=== PATIENT | female | born 1975 | race African-American/Black ===

== ENCOUNTER 2019-08-26 19:35 | Inpatient (IN) | payer MEDICAID ==
[~2019-08-26] VITALS: Ht 162.6 cm; Wt 107.0 kg
[2019-08-26] VITALS (7 sets, daily range): BP systolic 108–118; BP diastolic 52–63; BMI 41.1
[2019-08-26 20:08] LABS: ANION GAP 23.9 mmol/L (8-16); CALCIUM 8.5 mg/dL (8.5-10.1); CARBON DIOXIDE 16.1 mmol/L (21.0-32.0)
[2019-08-26 20:14] LABS: ALBUMIN 2.3 g/dL (3.4-5.0); BILIRUBIN - TOTAL 1.49 mg/dL (0.2-1.3); PROTEIN - SERUM 7.1 g/dL (6.4-8.2)
[2019-08-26 20:20] LABS: HEMATOCRIT 8.2 % (36.0-48.0); HEMOGLOBIN 2.2 g/dL (12-16); MCHC 26.8 g/dL (31.0-37.0); MCV 67.2 fL (80.0-100.0); MEAN PLATELET VOLUME 9.7 fL (7.4-10.4); PLATELET COUNT 410 10x3/uL (130-400); RBC 1.22 10x6/uL (4.00-5.40); RDW 21.2 % (11.5-14.5)
[2019-08-26 20:29] LABS: APTT 32.7 SECONDS (22.8-39.4); INR 1.48 (0.85-1.17); PROTIME 17.4 SECONDS (11.6-15.0)
[2019-08-26 20:30] LABS: APPEARANCE HAZY (CLEAR); BILIRUBIN NEGATIVE (NEGATIVE); COLOR YELLOW (YELLOW); GLUCOSE NEGATIVE (NEGATIVE); KETONE NEGATIVE (NEGATIVE); NITRITE NEGATIVE (NEGATIVE); PROTEIN NEGATIVE (NEGATIVE); UROBILINOGEN NORMAL (NORMAL)
[2019-08-26 20:32] LABS: HCG URINE NEGATIVE (NEGATIVE)
[2019-08-26 20:34] LABS: BACTERIA MODERATE /hpf (NEGATIVE); EPITHELIAL CELLS 0-5 /hpf (0-5); RED CELLS - URINE NONE SEEN /hpf (0-5)
--- NOTE | 2019-08-26 20:35 | NUR ---
OCCULT STOOL TEST POSITIVE. ADVISED YOJANA KEITH.
[2019-08-26 20:41] LABS: ANISOCYTOSIS 1+; LYMPHOCYTES 13 % (15-50); NEUTROPHILS 87 % (40-80); PLATELET ESTIMATE NORMAL
[2019-08-26 20:42] LABS: MICROCYTOSIS 2+; POIKILOCYTOSIS 1+
[2019-08-26 20:49] LABS: MAGNESIUM - SERUM 2.6 mg/dL (1.8-2.4); THYROID STIMULATING HORMONE 1.61 uIU/mL (0.36-3.74)
[2019-08-26 20:50] LABS: T4 THYROXIN - FREE 1.1 ng/dL (0.76-1.46); T4 THYROXINE 6.2 ug/dL (4.7-13.3)
[2019-08-26 20:58] LABS: % SATURATION 3 % (15-55); IRON 11 ug/dl (35-150); TOTAL IRON BIND CAPACITY 353 ug/dl (260-445); UNSAT IRON BIND CAPACITY 342 ug/dl (150-375)
[2019-08-26 21:04] LABS: TROPONIN-I 0.016 ng/mL (0.000-0.060)
--- NOTE | 2019-08-26 21:40 | NUR ---
PT TRANSPORTED TO CT PRIOR TO STARTING BLOOD PER EDP SAGAR
--- NOTE | 2019-08-26 23:15 | NUR ---
PATIENT ARRIVED ON UNIT VIA STRETCHER ACCOMPNAIED BY ER STAFF. TEAM TRANSFER TO ICU BED - PATIENT CONNECTED TO ICU MONITORS, ALRAMS ON AND WORKING. SUICIDE SCREENING,MED REC, ADMISSIONS HISTORY AND ADMISSION ASSESSMENT COMPLETED. PATIENT AWAKE ALERT AND ORIENTED, SHORTNESS OF BREATH NOTED, WEAKNESS ALL EXTREMITIES, TRACE EDEMA OF FEET AND ANKLES. SKIN IS FREE OF WOUNDS OR BREAKDOWN. PATIENT HAS 3LNC. PAIN 8/10 ON NUMERIC PAIN SCALE LOCATED LOWER LEFT KIDNEY, PAIN IS RELIEVED WITH PRESSURE. PATIENT DESCBRIBES THE PAIN AN ACHE AND IT IS INTERMITTENT. PATIENT ALSO EXPERIENCING SHARP SHOOTING PAINS STARTING FROM THE TOP OF LEFT SHOULDER AND SHOOTING DOWN HER LEG, PAIN IS INTERMITTENT. 8/10 ON NUMERIC PAIN SCALE.
[2019-08-27] VITALS (13 sets, daily range): BP systolic 94–119; BP diastolic 46–73
--- NOTE | 2019-08-27 03:20 | NUR ---
REASSESSMENT COMPLETED SEE FLOWSHEET
--- NOTE | 2019-08-27 05:06 | NUR ---
LINEN CHANGE COMPLETED
[2019-08-27 05:34] LABS: WBC 22.4 10x3/uL (4.8-10.8)
[2019-08-27 05:35] LABS: HEMOGLOBIN 2.7 g/dL (12-16); RBC 1.36 10x6/uL (4.00-5.40)
[2019-08-27 05:36] LABS: BASOPHILS 0 % (0-2); EOSINOPHILS 0 % (0-7); HEMATOCRIT 9.7 % (36.0-48.0); IMMATURE GRANULOCYTES 0.4 % (0-5); LYMPHOCYTES 3.4 % (15-50); MCH 19.9 pg (26.0-34.0); MCHC 27.8 g/dL (31.0-37.0); MCV 71.3 fL (80.0-100.0); MEAN PLATELET VOLUME 9.6 fL (7.4-10.4); MONOCYTES 7.3 % (2-11); NEUTROPHILS 88.9 % (40-80); PLATELET COUNT 335 10x3/uL (130-400); RDW 25.3 % (11.5-14.5)
[2019-08-27 05:50] LABS: ALBUMIN 2.1 g/dL (3.4-5.0); ANION GAP 19.7 mmol/L (8-16); BILIRUBIN - TOTAL 1.61 mg/dL (0.2-1.3); CALCIUM 8.5 mg/dL (8.5-10.1); CARBON DIOXIDE 18.8 mmol/L (21.0-32.0); CREATININE - SERUM 0.9 mg/dL (0.6-1.3); POTASSIUM - SERUM 3.5 mmol/L (3.5-5.1)
--- NOTE | 2019-08-27 11:01 | NUR ---
PATIENT ALERT AND ORIENTED. SHORTNESS OF BREATH. 3L NC. FINGER SATURATION STATES 50%. ABG DONE AND 99% SPO2. WILL CONTINUE TO MONITOR THAT. NO ACUTE DISTRESS. SEE ASSESSMENT. SEE VITALS Q1 HR. SEE ADL'S. BICARB DRIP @125. DENIES NEEDS AND PAIN AT THIS TIME.
--- NOTE | 2019-08-27 11:03 | NUR ---
FULL LIQUID DIET. PATIENT TOLERATED JUICE AND APPLESAUCE PROVIDED BY MELODY CUEVAS. NO DISTRESS. WILL CONTINUE TO MONITOR. ZOFRAN GIVEN PER MAR
--- NOTE | 2019-08-27 12:23 | NUR ---
report given to varun
--- NOTE | 2019-08-27 13:06 | NUR ---
RECEIVED TO ROOM 2218 VIA BED FROM ICU. A/O X3. SKIN IS INTACT WITHOUT REDNESS. DENIES NEEDS. PURE WICK PLACED PER STAFF.
--- NOTE | 2019-08-27 18:37 | NUR ---
ATE ABOUT HALF OF SUPPER. DENIES NEEDS. NO CHANGES NOTED. FAMILY AT BEDSIDE.
--- NOTE | 2019-08-27 20:20 | NUR ---
AWAKE,ALERT.NO COMPLAINTS VOICED. RESP EVEN AND UNALBORED. NO DISTRESS NOTED.MIDLINE INTACT TO MARTA WITHOUT REDNESS OR EDEMA NOTED. SL TO RAC WITHOUT REDNESS OR EDEMA. CL IN REACH. FAMILY AT BEDSIDE.
[2019-08-28 00:17] VITALS: BP 95/49
--- NOTE | 2019-08-28 03:26 | NUR ---
I have reviewed this patient and I concur with the Shift Assessment completed by the Licensed Practical Nurse today this shift.
[2019-08-28 04:47] VITALS: BP 96/52
[2019-08-28 06:20] LABS: BASOPHILS 0.1 % (0-2); EOSINOPHILS 0.1 % (0-7); IMMATURE GRANULOCYTES 0.6 % (0-5); LYMPHOCYTES 6.3 % (15-50); MCHC 27.7 g/dL (31.0-37.0); MCV 71.2 fL (80.0-100.0); MEAN PLATELET VOLUME 9.5 fL (7.4-10.4); MONOCYTES 7.9 % (2-11); PLATELET COUNT 296 10x3/uL (130-400); RDW 24.1 % (11.5-14.5)
[2019-08-28 06:28] LABS: WBC 14.8 10x3/uL (4.8-10.8)
[2019-08-28 06:29] LABS: MCH 19.7 pg (26.0-34.0)
[2019-08-28 06:30] LABS: HEMATOCRIT 9.4 % (36.0-48.0); HEMOGLOBIN 2.6 g/dL (12-16); RBC 1.32 10x6/uL (4.00-5.40)
[2019-08-28 06:35] LABS: ALBUMIN 1.9 g/dL (3.4-5.0); ALKALINE PHOSPHATASE 111 U/L (46-116); ALT (SGPT) 28 U/L (10-68); BILIRUBIN - TOTAL 1.57 mg/dL (0.2-1.3); CALCIUM 8.1 mg/dL (8.5-10.1); CHLORIDE - SERUM 98 mmol/L (98-107); CREATININE - SERUM 0.7 mg/dL (0.6-1.3); GLUCOSE 104 mg/dL (74-106); PROTEIN - SERUM 6.5 g/dL (6.4-8.2); SODIUM 134 mmol/L (136-145); eGFR NON AFRICAN AMERICAN > 90 mL/min (90-120)
[2019-08-28 06:44] LABS: CALC OSMOLALITY 266 mosm/kg (275-300); CARBON DIOXIDE 31.2 mmol/L (21.0-32.0); UREA NITROGEN 9 mg/dL (7-18)
[2019-08-28 06:46] LABS: POTASSIUM - SERUM 2.8 mmol/L (3.5-5.1)
[2019-08-28 07:56] VITALS: BP 100/56
--- NOTE | 2019-08-28 09:40 | NUR ---
ORDER TO TRANSFUSE BLOOD AT THIS TIME, 2 UNITS. ALSO ORDER TO TRANSFER PATIENT TO ICU. NO COMPLAINTS OR SIGNS OF DISTRESS. AT THIS TIME. H&H CRITICAL. IV AND MIDLINE INTACT. CALL LIGHT WITHIN REACH.
--- NOTE | 2019-08-28 09:58 | MORECARE ---
CASE MANAGEMENT DISCHARGE SUMMARY PATIENT: ANNABELLE URBANO UNIT: [id number] ADM DATE: 08/26/19 AGE: 44 : 77 SEX: F ROOM/BED: D.2218 AUTHOR: CORTEZ MAYNARD PHYSICIAN: REFERRING PHYSICIAN: JHONY JANE MD DATE OF SERVICE: 08/28/19 Discharge Plan Patient Name: ANNABELLE URBANO Facility: [facility]:[place] : 1975 Planned Disposition: Home or Self Care Anticipated Discharge Date: Discharge Date: Expected LOS: Initial Reviewer: [email or web address] Initial Review Date: 08/26/2019 Generated: 08/28/19 10:58 am Comments DCP- Discharge Planning Updated by [email or web address]: Karrie Paulino on 08/28/19 8:[address] Patient Name: ANNABELLE URBANO Admission Status: ER Accout number: [id number] Admission Date: 08-26-2019 : 1975 Admission Diagnosis: Attending: JHONY JANE Current LOS: 2 Anticipated DC Date: Planned Disposition: Home or Self Care Primary Insurance: MEDICAID [place] PENDING Discharge Planning Comments: CM met with patient to complete initial dc planning assessment. CM educated patient on the CM role and verbal consent given by patient to complete assessment. Patient lives at home with a friend where she is independent with her care. At discharge patient plans to return home and feels this is a safe discharge. She stated that her son or her sister will be her pharmacy delivery driver home. CM discussed availability of home health, rehab services, and medical equipment. Patient denied known discharge needs at this time. CM will continue to follow and will assist as needed with dc plans/needs. Cigarette Making Machine Catcher: Karrie Paulino DCPIA - Discharge Planning Initial Assessment Updated by [email or web address]: Karrie Paulino on 08/28/19 9:53 am * Is the patient Alert and Oriented? Yes * How many steps to enter\exit or inside your home? * PCP none * Pharmacy [facility] [address] * Preadmission Environment Home Alone * ADLs Independent * Equipment None * List name and contact numbers for known caregivers / representatives who currently or will assist patient after discharge: papi kirk [phone] * Verbal permission to speak to the caregivers and representatives has been obtained from the patient. N/A * Community resources currently utilized None * Additional services required to return to the preadmission environment? No * Can the patient safely return to the preadmission environment? Yes * Has this patient been hospitalized within the prior 30 days at any hospital? No Patient Name: ANNABELLE URBANO Page [phone] at 0958 All edits/amendments must be made on the electronic document DICTATION DATE: 08/28/19957 RAIL CAR OPERATOR: GASPER 08/28/19957 RPT#: [id number] DC DATE: STATUS: ADM IN [facility] [address] [place] [address] END OF REPORT
[2019-08-28 10:12] LABS: INR 1.36 (0.85-1.17); PROTIME 16.2 SECONDS (11.6-15.0)
--- NOTE | 2019-08-28 10:15 | NUR ---
BLOOD READY AT THIS TIME FOR TRANSFUSION.
--- NOTE | 2019-08-28 10:25 | NUR ---
CALLED REPORT TO KRYS IN ICU FOR TRANSFER. STATED THAT SHE WAS TOLD NOW THAT THE PATIENT IS NOT COMING TO ICU ANYMORE. STATED TO CALL HER BACK AND LET HER KNOW IF SHE WAS. PATIENT IN BED WITH NO COMPLAINTS OR SIGNS OF DISTRESS. CALL LIGHT WITHIN REACH.
--- NOTE | 2019-08-28 11:15 | NUR ---
PATIENT NOT BEING TRANSFERED TO UNIT AT THIS TIME PER DR. FLORES. PATIENT STABLE AND HAS NOT DISTRESS. VS WNL. O2 SATS WNL, NO COMPLAINTS. CALL LIGHT WITHIN REACH.
--- NOTE | 2019-08-28 12:15 | NUR ---
SPOKE WITH DR. FLORES TO VERIFY OK FOR 2 UNITS OF BLOOD. EXPLAINED IN REPORT I WAS TOLD I COULD ONLY GIVE 1 UNIT A DAY. STATED OK TO GIVE BOTH UNITS AT THIS TIME.
--- NOTE | 2019-08-28 13:16 | MORECARE ---
CASE MANAGEMENT DISCHARGE SUMMARY PATIENT: ANNABELLE URBANO UNIT: [id number] ADM DATE: 08/26/19 AGE: 44 : 77 SEX: F ROOM/BED: D.1398 AUTHOR: CORTEZ MAYNARD PHYSICIAN: REFERRING PHYSICIAN: JHONY JANE MD DATE OF SERVICE: 08/28/19 Discharge Plan Patient Name: ANNABELLE URBANO Facility: [facility]:[place] : 1975 Planned Disposition: Home or Self Care Anticipated Discharge Date: Discharge Date: Expected LOS: Initial Reviewer: [email or web address] Initial Review Date: 08/26/2019 Generated: 08/28/19 2:15 pm Comments DCP- Discharge Planning Updated by [email or web address]: Karrie Paulino on 08/28/19 12:[address] TRANSFER STARTED, SPOKE WITH KARIS WITH EASY ADMIT DCP- Discharge Planning Updated by [email or web address]: Karrie Paulino on 08/28/19 8:[address] Patient Name: ANNABELLE URBANO Admission Status: ER Accout number: [id number] Admission Date: 08-26-2019 : 1975 Admission Diagnosis: Attending: JHONY JANE Current LOS: 2 Anticipated DC Date: Planned Disposition: Home or Self Care Primary Insurance: MEDICAID [place] PENDING Discharge Planning Comments: CM met with patient to complete initial dc planning assessment. CM educated patient on the CM role and verbal consent given by patient to complete assessment. Patient lives at home with a friend where she is independent with her care. At discharge patient plans to return home and feels this is a safe discharge. She stated that her son or her sister will be her motor driver home. CM discussed availability of home health, rehab services, and medical equipment. Patient denied known discharge needs at this time. CM will continue to follow and will assist as needed with dc plans/needs. Truck Cleaner: Karrie Paulino DCPIA - Discharge Planning Initial Assessment Updated by [email or web address]: Karrie Paulino on 08/28/19 9:53 am * Is the patient Alert and Oriented? Yes * How many steps to enter\exit or inside your home? * PCP none * Pharmacy [facility] on [address] * Preadmission Environment Home Alone * ADLs Independent * Equipment None * List name and contact numbers for known caregivers / representatives who currently or will assist patient after discharge: papi kirk [phone] * Verbal permission to speak to the caregivers and representatives has been obtained from the patient. N/A * Community resources currently utilized None * Additional services required to return to the preadmission environment? No * Can the patient safely return to the preadmission environment? Yes * Has this patient been hospitalized within the prior 30 days at any hospital? No Last DP export: 08/28/19 8:58 Patient Name: ANNABELLE URBANO Page [phone] at 1316 All edits/amendments must be made on the electronic document DICTATION DATE: 08/28/191314 BUSINESS ANALYST ECOMMERCE: GASPER 08/28/191314 RPT#: [id number] DC DATE: STATUS: ADM IN [facility] [address] [place] [address] END OF REPORT
--- NOTE | 2019-08-28 13:40 | NUR ---
SPOKE WITH PEDRO CROCKETT ABOUT DR. FLORES CLARIFYING OK TO GIVE 2 UNITS. BON STATED TO INFUSE AT 100/HOUR.
--- NOTE | 2019-08-28 13:45 | MORECARE ---
CASE MANAGEMENT DISCHARGE SUMMARY PATIENT: ANNABELLE URBANO UNIT: [id number] ADM DATE: 08/26/19 AGE: 44 : 77 SEX: F ROOM/BED: D.2218 AUTHOR: CORTEZ MAYNARD PHYSICIAN: REFERRING PHYSICIAN: JHONY JANE MD DATE OF SERVICE: 08/28/19 Discharge Plan Patient Name: ANNABELLE URBANO Facility: [facility]:[place] : 1975 Planned Disposition: Home or Self Care Anticipated Discharge Date: Discharge Date: Expected LOS: Initial Reviewer: [email or web address] Initial Review Date: 08/26/2019 Generated: 08/28/19 2:45 pm Comments DCP- Discharge Planning Updated by [email or web address]: Karrie Paulino on 08/28/19 12:[address] SPOKE WITH PATIENT AND PATIENT'S SON ABOUT TRANSFER MAYCO URBANO (SON) [phone] DCP- Discharge Planning Updated by [email or web address]: Karrie Paulino on 08/28/19 12:[address] TRANSFER STARTED, SPOKE WITH KARIS WITH EASY ADMIT DCP- Discharge Planning Updated by [email or web address]: Karrie Paulino on 08/28/19 8:[address] Patient Name: ANNABELLE URBANO Admission Status: ER Accout number: [id number] Admission Date: 08-26-2019 : 1975 Admission Diagnosis: Attending: JHONY JANE Current LOS: 2 Anticipated DC Date: Planned Disposition: Home or Self Care Primary Insurance: MEDICAID [place] PENDING Discharge Planning Comments: CM met with patient to complete initial dc planning assessment. CM educated patient on the CM role and verbal consent given by patient to complete assessment. Patient lives at home with a friend where she is independent with her care. At discharge patient plans to return home and feels this is a safe discharge. She stated that her son or her sister will be her transport truck driver home. CM discussed availability of home health, rehab services, and medical equipment. Patient denied known discharge needs at this time. CM will continue to follow and will assist as needed with dc plans/needs. Recycler Forklift Driver Truck Driver: Karrie Paulino DCPIA - Discharge Planning Initial Assessment Updated by [email or web address]: Karrie Paulino on 08/28/19 9:53 am * Is the patient Alert and Oriented? Yes * How many steps to enter\exit or inside your home? * PCP none * Pharmacy [facility] [address] * Preadmission Environment Home Alone * ADLs Independent * Equipment None * List name and contact numbers for known caregivers / representatives who currently or will assist patient after discharge: papi kirk [phone] * Verbal permission to speak to the caregivers and representatives has been obtained from the patient. N/A * Community resources currently utilized None * Additional services required to return to the preadmission environment? No * Can the patient safely return to the preadmission environment? Yes * Has this patient been hospitalized within the prior 30 days at any hospital? No Last DP export: 08/28/19 12:16 Patient Name: ANNABELLE URBANO Page [phone] at 1345 All edits/amendments must be made on the electronic document DICTATION DATE: 08/28/19 134 ALUMINA PLANT SUPERVISOR: GASPER 08/28/19 1345 RPT#: [id number] DC DATE: STATUS: ADM IN [facility] [address] [place] [address] END OF REPORT
--- NOTE | 2019-08-28 14:00 | NUR ---
STARTED FIRST UNIT OF BLOOD, INFUSING AT 100ML/HOUR. PATIENT VS STABLE AND IV INTACT. NO COMPLAINTS OR SIGNS OF DISTRESS. FAMILY AT BEDSIDE. CALL LIGHT WITHIN REACH.
--- NOTE | 2019-08-28 14:15 | NUR ---
PATIENT BLOOD INFUSING WITH NO PROBLEMS. VS STABLE. IV INTACT. CALL LIGHT WITHIN REACH.
[2019-08-28 14:23] VITALS: BMI 40.5
--- NOTE | 2019-08-28 15:30 | NUR ---
WAS TOLD BY HERMANN MENA AND DR. FLORES OK TO INFUSE BLOOD AT FASTER RIGHT. TO GO AHEAD AND GIVE THE NEXT UNIT AT NORMAL RATE AND TO GIVE LASIX 20 MG AFTER. VERBALIZED UNDERSTANDING. INFUSION TURNED UP BY RN. CALL LIGHT WITHIN REACH.
--- NOTE | 2019-08-28 15:49 | MORECARE ---
CASE MANAGEMENT DISCHARGE SUMMARY PATIENT: ANNABELLE URBANO UNIT: [id number] ADM DATE: 08/26/19 AGE: 44 : 77 SEX: F ROOM/BED: D.2218 AUTHOR: CORTEZ MAYNARD PHYSICIAN: REFERRING PHYSICIAN: JHONY JANE MD DATE OF SERVICE: 08/28/19 Discharge Plan Patient Name: ANNABELLE URBANO Facility: [facility]:[place] : 1975 Planned Disposition: Home or Self Care Anticipated Discharge Date: Discharge Date: Expected LOS: Initial Reviewer: [email or web address] Initial Review Date: 08/26/2019 Generated: 08/28/19 4:49 pm Comments DCP- Discharge Planning Updated by [email or web address]: Karrie Paulino on 08/28/19 12:[address] SPOKE WITH PATIENT AND PATIENT'S SON ABOUT TRANSFER MAYCO URBANO (SON) [phone] DCP- Discharge Planning Updated by [email or web address]: Karrie Paulino on 08/28/19 12:[address] TRANSFER STARTED, SPOKE WITH KARIS WITH EASY ADMIT DCP- Discharge Planning Updated by [email or web address]: Karrie Paulino on 08/28/19 8:[address] Patient Name: ANNABELLE URBANO Admission Status: ER Accout number: [id number] Admission Date: 08-26-2019 : 1975 Admission Diagnosis: Attending: JHONY JANE Current LOS: 2 Anticipated DC Date: Planned Disposition: Home or Self Care Primary Insurance: MEDICAID [place] PENDING Discharge Planning Comments: CM met with patient to complete initial dc planning assessment. CM educated patient on the CM role and verbal consent given by patient to complete assessment. Patient lives at home with a friend where she is independent with her care. At discharge patient plans to return home and feels this is a safe discharge. She stated that her son or her sister will be her driver's education instructor home. CM discussed availability of home health, rehab services, and medical equipment. Patient denied known discharge needs at this time. CM will continue to follow and will assist as needed with dc plans/needs. Tearoom Hostess: Karrie Paulino DCPIA - Discharge Planning Initial Assessment Updated by [email or web address]: Karrie Paulino on 08/28/19 9:53 am * Is the patient Alert and Oriented? Yes * How many steps to enter\exit or inside your home? * PCP none * Pharmacy [facility] [address] * Preadmission Environment Home Alone * ADLs Independent * Equipment None * List name and contact numbers for known caregivers / representatives who currently or will assist patient after discharge: papi kirk [phone] * Verbal permission to speak to the caregivers and representatives has been obtained from the patient. N/A * Community resources currently utilized None * Additional services required to return to the preadmission environment? No * Can the patient safely return to the preadmission environment? Yes * Has this patient been hospitalized within the prior 30 days at any hospital? No Last DP export: 08/28/19 12:45 Patient Name: ANNABELLE URBANO Page [phone] at 1549 All edits/amendments must be made on the electronic document DICTATION DATE: 08/28/191547 ANCHORMAN: GASPER 08/28/191547 RPT#: [id number] DC DATE: STATUS: ADM IN [facility] [address] [place] [address] END OF REPORT
--- NOTE | 2019-08-28 15:58 | MORECARE ---
CASE MANAGEMENT DISCHARGE SUMMARY PATIENT: ANNABELLE URBANO UNIT: [id number] ADM DATE: 08/26/19 AGE: 44 : 77 SEX: F ROOM/BED: D.2218 AUTHOR: CORTEZ MAYNARD PHYSICIAN: REFERRING PHYSICIAN: JHONY JANE MD DATE OF SERVICE: 08/28/19 Discharge Plan Patient Name: ANNABELLE URBANO Facility: [facility]:[place] : 1975 Planned Disposition: Home or Self Care Anticipated Discharge Date: Discharge Date: Expected LOS: Initial Reviewer: [email or web address] Initial Review Date: 08/26/2019 Generated: 08/28/19 4:58 pm Comments DCP- Discharge Planning Updated by [email or web address]: Karrie Paulino on 08/28/19 2:[address] SPOKE WITH PACO AT [facility]Y ADMIT, THEY HAVE AN ACCEPTING MD DR MARIUSZ DIOP AT [facility] IN [place] DCP- Discharge Planning Updated by [email or web address]: Karrie Paulino on 08/28/19 12:[address] SPOKE WITH PATIENT AND PATIENT'S SON ABOUT TRANSFER MAYCO URBANO (SON) [phone] DCP- Discharge Planning Updated by [email or web address]: Karrie Paulino on 08/28/19 12:[address] TRANSFER STARTED, SPOKE WITH KARIS WITH EASY ADMIT DCP- Discharge Planning Updated by [email or web address]: Karrie Paulino on 08/28/19 8:[address] Patient Name: ANNABELLE URBANO Admission Status: ER Accout number: [id number] Admission Date: 08-26-2019 : 1975 Admission Diagnosis: Attending: JHONY JANE Current LOS: 2 Anticipated DC Date: Planned Disposition: Home or Self Care Primary Insurance: MEDICAID [place] PENDING Discharge Planning Comments: CM met with patient to complete initial dc planning assessment. CM educated patient on the CM role and verbal consent given by patient to complete assessment. Patient lives at home with a friend where she is independent with her care. At discharge patient plans to return home and feels this is a safe discharge. She stated that her son or her sister will be her recycle driver home. CM discussed availability of home health, rehab services, and medical equipment. Patient denied known discharge needs at this time. CM will continue to follow and will assist as needed with dc plans/needs. Snubber: Karrie Paulino DCPIA - Discharge Planning Initial Assessment Updated by [email or web address]: Karrie Paulino on 08/28/19 9:53 am * Is the patient Alert and Oriented? Yes * How many steps to enter\exit or inside your home? * PCP none * Pharmacy [facility] [address] * Preadmission Environment Home Alone * ADLs Independent * Equipment None * List name and contact numbers for known caregivers / representatives who currently or will assist patient after discharge: paip kirk [phone] * Verbal permission to speak to the caregivers and representatives has been obtained from the patient. N/A * Community resources currently utilized None * Additional services required to return to the preadmission environment? No * Can the patient safely return to the preadmission environment? Yes * Has this patient been hospitalized within the prior 30 days at any hospital? No Last DP export: 08/28/19 2:49 Patient Name: ANNABELLE URBANO Page 16249 at 1558 All edits/amendments must be made on the electronic document DICTATION DATE: 08/28/191557 MUNICIPAL BOND TRADER: GASPER 08/28/191557 RPT#: [id number] DC DATE: STATUS: ADM IN [address] [place] [address] END OF REPORT
[2019-08-28] MEDS ORDERED: NICODERM C1 PATCH .1 TRANSDERM (16:02)
[2019-08-28] MEDS ORDERED: MAXIPIME 2 GM/D52 G1 IV (16:02)
[2019-08-28] MEDS ORDERED: VANCOMYCIN 750750 MG IV (16:02)
[2019-08-28] MEDS ORDERED: FLORAJEN3 CAPS460 MG PO (16:02)
--- NOTE | 2019-08-28 16:45 | NUR ---
PATIENT BLOOD FINISHED AT THIS TIME WITH VS STABLE. NO COMPLAINTS OR SIGNS OF DISTRESS. IV INTACT. VS STABLE.
--- NOTE | 2019-08-28 17:15 | NUR ---
PATIENT SECOND UNIT OF BLOOD STARTED AT THIS TIME. PATIENT IV INTACT. VS STABLE. STATES SHE HAD A LITTLE ABDOMINAL PAIN. ATIVAN ORDERED, PATIENT WANTS TO GET ON BP. BP STILL SLIGHTLY LOW. PLACED PATIENT ON BED ARMENTA. CALL LIGHT WITHIN REACH.
--- NOTE | 2019-08-28 17:45 | NUR ---
WAS TOLD THAT PATIENT NEEDED TO GO TO ICU PER YADIRA AT THIS TIME. WAS TOLD THAT ORDERS ARE IN TO TRANSFER PATIENT ICU. PATIENT STATED SHE DIDNT WANT TO GO BACK TO THE UNIT. PATIENT STABLE. SPOKE WITH ICU NURSE AND EXPLAINED ID CALL REPORT WHEN I RECIEVED BED.
--- NOTE | 2019-08-28 18:00 | NUR ---
PATIENT BEING TRANSFERRED OUT TO [facility] AFTER SHIFT CHANGE. BED AVAILABLE AT THAT TIME. NOTIFIED PATIENT. VERBALIZED UNDERSTANDING. CALL LIGHT WITHIN REACH.
--- NOTE | 2019-08-28 18:45 | NUR ---
PATIENT IN BED WITH IV INTACT. NO COMPLAINTS OR SIGNS OF DISTRESS. EYES CLOSED RESTING. BLOOD INFUSING. CALL LIGHT WITHIN REACH. VS STABLE.
[2019-08-28 21:10] LABS: HEMATOCRIT 15.7 % (36.0-48.0); HEMOGLOBIN 4.9 g/dL (12-16)
--- NOTE | 2019-08-28 21:33 | NUR ---
PT RESTING IN BED. ALERT AND ORIENTED. NO SIGNS OF DISTRESS. BREATHING EVEN AND UNLABORED. PT STATES NO PROBLEMS AT THIS TIME. IV SITE RT AC SL DRESSING CLEAN DRY AND INTACT. LT UPPER ARM MIDLINE DRESSING CLEAN DRY AND INTACT. NO SIGNS OF INFECTION. BOWEL SOUNDS ACTIVEX4. ABD TENDER TO PALPATION. SKIN CLEAN DRY AND INTACT. WILL CONTINUE PLAN OF CARE. CALL LIGHT IN REACH. BED LOWERED AND LOCKED. WAITING ON [facility] FOR PT TRANSFER TO [facility]. WILL FALLOW UP.
--- NOTE | 2019-08-28 21:52 | NUR ---
[facility] COME AND GOT PT TO TRANSFER TO [facility]. PT STABLE AND ALERT AND OREINTED AT THE TIME OF DEPARTCHER.
--- NOTE | 2019-08-30 13:03 | MORECARE ---
CASE MANAGEMENT DISCHARGE SUMMARY PATIENT: ANNABELLE URBANO UNIT: [id number] ADM DATE: 08/26/19 AGE: 44 : 77 SEX: F ROOM/BED: D.2218 AUTHOR: CORTEZ MAYNARD PHYSICIAN: REFERRING PHYSICIAN: JHONY JANE MD DATE OF SERVICE: 08/30/19 Discharge Plan Patient Name: ANNABELLE URBANO Facility: [facility]:[place] : 1975 Planned Disposition: Home or Self Care Anticipated Discharge Date: Discharge Date: 08/28/2019 Expected LOS: 0 Initial Reviewer: [email or web address] Initial Review Date: 08/26/2019 Generated: 08/30/19 2:03 pm Comments DCP- Discharge Planning Updated by [email or web address]: Karrie Paulino on 08/28/19 2:[address] SPOKE WITH [facility] AT [facility], THEY HAVE AN ACCEPTING MD DR MARIUSZ DIOP AT [facility] IN [place] DCP- Discharge Planning Updated by [email or web address]: Karrie Paulino on 08/28/19 12:[address] SPOKE WITH PATIENT AND PATIENT'S SON ABOUT TRANSFER MAYCO URBANO (SON) [phone] DCP- Discharge Planning Updated by [email or web address]: Karrie Paulino on 08/28/19 12:[address] TRANSFER STARTED, SPOKE WITH KARIS WITH [facility] DCP- Discharge Planning Updated by [email or web address]: Karrie Paulino on 08/28/19 8:[address] Patient Name: ANNABELLE URBANO Admission Status: ER Accout number: [id number] Admission Date: 08-26-2019 : 1975 Admission Diagnosis: Attending: JHONY JANE Current LOS: 2 Anticipated DC Date: Planned Disposition: Home or Self Care Primary Insurance: MEDICAID [place] PENDING Discharge Planning Comments: CM met with patient to complete initial dc planning assessment. CM educated patient on the CM role and verbal consent given by patient to complete assessment. Patient lives at home with a friend where she is independent with her care. At discharge patient plans to return home and feels this is a safe discharge. She stated that her son or her sister will be her driver operator home. CM discussed availability of home health, rehab services, and medical equipment. Patient denied known discharge needs at this time. CM will continue to follow and will assist as needed with dc plans/needs. Territory Sales Representative: Karrie Paulino DCPIA - Discharge Planning Initial Assessment Updated by [email or web address]: Karrie Paulino on 08/28/19 9:53 am * Is the patient Alert and Oriented? Yes * How many steps to enter\exit or inside your home? * PCP none * Pharmacy [facility] on [address] * Preadmission Environment Home Alone * ADLs Independent * Equipment None * List name and contact numbers for known caregivers / representatives who currently or will assist patient after discharge: papi kirk [phone] * Verbal permission to speak to the caregivers and representatives has been obtained from the patient. N/A * Community resources currently utilized None * Additional services required to return to the preadmission environment? No * Can the patient safely return to the preadmission environment? Yes * Has this patient been hospitalized within the prior 30 days at any hospital? No Last DP export: 08/28/19 2:59 Patient Name: ANNABELLE URBANO Page [id number] at 1303 All edits/amendments must be made on the electronic document DICTATION DATE: 08/30/19 1303 HYDRAULIC TECHNICIAN: GASPER 08/30/19 1303 RPT#: [id number] DC DATE:08/28/19 STATUS: DIS IN [facility] [address] [place] [address] END OF REPORT
[2019-09-11 11:30] VITALS: Ht 162.6 cm; Wt 107.0 kg
== END 2019-08-28 21:53 | DRG 871 ==
LOC: D.ER 19:35 → D.MS 22:30 → D.ICU 22:30 → D.MS 08-27 12:52 → D.SDCHOLD 08-28 15:09 → D.MS 08-28 21:53
PROVIDERS: Emergency Medicine; Family Medicine; ADMIT Internal Medicine Nephrology; ATTEND Internal Medicine Nephrology
PROC: 05HC33Z Insertion of Infusion Device into Left Basilic Vein, Percutaneous Approach (ICD-10-PCS; principal; 2019-08-26)
PROC: B54NZZA Ultrasonography of Left Upper Extremity Veins, Guidance (ICD-10-PCS; 2019-08-26)
DX: A41.9 Sepsis, unspecified organism (principal); J18.1 Lobar pneumonia, unspecified organism; F17.213 Nicotine dependence, cigarettes, with withdrawal; E87.1 Hypo-osmolality and hyponatremia; D50.9 Iron deficiency anemia, unspecified